=== PATIENT | male | born 1935 | race Caucasian/White ===

== ENCOUNTER → 2016-09-09 | Outpatient (CLI) | payer MEDICARE, OTHER | END | disposition home or self-care (01) | LOC: CFH 10:03 | PROVIDERS: ATTEND Surgery | DX: Z01.818 Encounter for other preprocedural examination (principal); M81.0 Age-related osteoporosis without current pathological fracture; M85.88 Other specified disorders of bone density and structure, other site; E21.0 Primary hyperparathyroidism | CPT/HCPCS: 77080 ==

== ENCOUNTER → 2016-09-20 | Outpatient (CLI) | payer MEDICARE, OTHER | END | disposition home or self-care (01) | LOC: PETCFH 10:07 | PROVIDERS: ATTEND Surgery | DX: Z01.818 Encounter for other preprocedural examination (principal); E21.0 Primary hyperparathyroidism | CPT/HCPCS: 78070; A9500 ==

== ENCOUNTER → 2016-09-20 | Outpatient (CLI) | payer MEDICARE, OTHER | END | disposition home or self-care (01) | LOC: CFH 10:09 | PROVIDERS: ATTEND Surgery | DX: E04.2 Nontoxic multinodular goiter (principal); E21.0 Primary hyperparathyroidism | CPT/HCPCS: 76536 ==

== ENCOUNTER → 2016-10-01 | Outpatient (CLI) | payer MEDICARE, OTHER | END | disposition home or self-care (01) | LOC: CFH 11:43 | PROVIDERS: ATTEND Surgery | DX: E21.0 Primary hyperparathyroidism (principal) | CPT/HCPCS: 76770 ==